=== PATIENT | female | born 2000 | race Caucasian/White ===

== ENCOUNTER 2022-06-26 06:20 | Day surgery (SDC) | payer BC ==
[2022-06-26] MEDS ORDERED: Lactated Ringers 1,000 ML IV ONE (06:41)
[2022-06-26 06:51] VITALS: O2SAT 100
[2022-06-26] MEDS ORDERED: Lactated Ringers 1,000 ML IV SCH (07:00)
[2022-06-26] MEDS ORDERED: DIPRIVAN 200 MG/20 ML IV ONE (07:27)
[2022-06-26] MEDS ORDERED: Versed 2 MG/2 ML Injection ONE (07:27)
[2022-06-26] MEDS ORDERED: Xylocaine-Mpf 2% 5 Ml Vial ONE (07:28)
[2022-06-26 08:40] VITALS: BP 120/69; PULSE 72
--- NOTE | 2022-06-26 14:38 | OP ---
SURGERY DATE: 06/26/2022 SURGERY TIME: 727 PREOPERATIVE DIAGNOSIS: 1. DIARRHEA AND ABDOMINAL PAIN. POSTOPERATIVE DIAGNOSIS: 1. NORMAL COLON. PROCEDURE: 1. Colonoscopy. SURGEON: Dr. Dalal. ANESTHESIA: MAC. Medications given by the Anesthesia Department. BRIEF HISTORY: The patient is a 21 y/o WF who presents now with complaints of abdominal pain and diarrhea. She reports that approximately 2 years ago she had her gallbladder removed at which time she began having problems with the change in the stools. The patient was felt to need to have endoscopic evaluation. She was appraised of the risks of the procedure including the risk of perforation, phlebitis, untoward reaction to medication, bleeding, and missed lesions. The patient verbalized her understanding and desired to have the procedure performed. DESCRIPTION OF PROCEDURE: The patient was given the medications by the Anesthesia Department. She had continuous pulse oximetry, ECG monitoring, and intermittent BP monitoring during the examination. She was placed in the left lateral decubitus position. A digital rectal examination was performed and revealed normal anal sphincter tone and no masses. The flexible Olympus pediatric colonoscope was used to intubate the rectum. A view of the colon was developed sequentially to the cecum including a short distance in the terminal ileum. Upon insertion and withdrawal, including a retroflex view in the rectum, no mucosal lesions were encountered. The scope was removed from the patient who tolerated the procedure well and was sent back to OP recovery in good condition. The prep was noted to be good.
== END 2022-06-26 08:50 | disposition home or self-care (01) ==
LOC: SDC 06:20
PROVIDERS: ATTEND Family Medicine
DX: R19.7 Diarrhea, unspecified (principal); R10.9 Unspecified abdominal pain
CPT/HCPCS: 81025; J2250; J2704